=== PATIENT | female | born 1960 | race Caucasian/White ===

== ENCOUNTER 2016-04-08 16:45 | Observation (INO) | payer OTHER ==
[~2016-04-08] VITALS: Ht 170.2 cm; Wt 67.0 kg
[2016-04-08 17:43] LABS: MCH 31.8 PG (29.0-34.0); MCHC 33.5 G/DL (30.0-36.0); PLATELET COUNT 152 K/uL (156-360); RBC DIS.WIDTH-CV 13.8 % (11.8-14.6); RBC DIS.WIDTH-SD 45.7 % (39-53); RED BLOOD COUNT 4.21 M/uL (3.80-5.20); WHITE BLOOD COUNT 4.9 K/uL (4.1-10.2)
[2016-04-08 17:52] LABS: CHLORIDE 108 mEq/L (99-109); POTASSIUM 3.9 mEq/L (3.7-5.4); SODIUM 141 mEq/L (136-147)
[2016-04-08 17:54] LABS: GLUCOSE 86 mg/dL (70-99)
[2016-04-08 17:56] LABS: ANION GAP 9 MEQ/L (2-14)
[2016-04-08 17:58] LABS: GFR ESTIMATE (CALCULATED) 45 mL/min/
[2016-04-08 17:59] LABS: UREA NITROGEN (BUN) 21 mg/dL (9-23)
[2016-04-08 18:04] LABS: TROP-I INTERPRETATION NEGATIVE; TROPONIN-I < 0.01 ng/mL (0.0-0.30)
[2016-04-08] MEDS ORDERED: IMITREX100 MG PO (19:18)
[2016-04-08] MEDS ORDERED: TOPAMAX100 MG PO (19:18)
[2016-04-08] MEDS ORDERED: LO-DOSE ASPIRIN81 M1 PO (19:19)
[2016-04-08] MEDS ORDERED: ZOFRAN4 MG PO (19:19)
[2016-04-08] MEDS ORDERED: PROAIR HFA8.5 GM IH (19:19)
[2016-04-08] MEDS ORDERED: XANAX0.5 MG PO (19:20)
[2016-04-08] MEDS ORDERED: NITROGLYCERIN0.4 MG SL (19:20)
[2016-04-08] MEDS ORDERED: LEXAPRO20 MG PO (19:20)
[2016-04-08] MEDS ORDERED: IMDUR60 MG PO (19:21)
[2016-04-08] MEDS ORDERED: RANEXA1000 MG PO (19:21)
[2016-04-08] MEDS ORDERED: VERAPAMIL HCL180 MG PO (19:21)
[2016-04-08] MEDS ORDERED: ATORVASTATIN CA40 MG PO (19:22)
[2016-04-08] MEDS ORDERED: PRINIVIL10 MG PO (19:22)
[2016-04-08] MEDS ORDERED: LASIX40 MG PO (19:22)
[2016-04-08] MEDS ORDERED: PROVERA,CYCRIN10 MG PO (19:22)
[2016-04-08] MEDS ORDERED: TYLENOL EXTRA500 MG PO (19:23)
[2016-04-08] MEDS ORDERED: TUMS500 MG PO (19:23)
[2016-04-08] MEDS ORDERED: PROTONIX20 MG PO (19:24)
[2016-04-08] MEDS ORDERED: ADVAIR 250/501 DISK IH (19:24)
[2016-04-08] MEDS ORDERED: EPINEPHRINE (19:27)
[2016-04-09] VITALS (8 sets, daily range): BP systolic 97–169; BP diastolic 55–72
[2016-04-09 03:44] LABS: TROP-I INTERPRETATION NEGATIVE; TROPONIN-I < 0.01 ng/mL (0.0-0.30)
[2016-04-09 09:40] LABS: TROP-I INTERPRETATION NEGATIVE; TROPONIN-I < 0.01 ng/mL (0.0-0.30)
[2016-04-09 13:14] LABS: D-DIMER ELISA 0.31 mg/L FEU (< 0.57)
== END 2016-04-09 15:47 | disposition home or self-care (01) ==
LOC: EME 16:45 → 5WEST 23:39 → EDOF 23:39 → 5WEST 04-09 01:36
PROVIDERS: Hospitalist; Nurse Practitioner Adult Health
DX: R07.9 Chest pain, unspecified (principal); I51.81 Takotsubo syndrome; Z95.0 Presence of cardiac pacemaker; I49.5 Sick sinus syndrome; K22.70 Barrett's esophagus without dysplasia; Z87.891 Personal history of nicotine dependence; E78.5 Hyperlipidemia, unspecified; Z88.2 Allergy status to sulfonamides; Z91.030 Bee allergy status
CPT/HCPCS: 71020; 80048; 84484; 85027; 85379; 93005; 94640; 99202; 99281; 99285; G0378; J1650; J3010

== ENCOUNTER 2016-04-14 20:01 | Observation (INO) | payer OTHER ==
[~2016-04-14] VITALS: Ht 170.2 cm; Wt 64.8 kg
[~2016-04-14 20:01] MED LIST: ADVAIR 250/501 DISK IH; ATORVASTATIN CA40 MG PO; EPINEPHRINE; IMDUR60 MG PO; IMITREX100 MG PO; LASIX40 MG PO; LEXAPRO20 MG PO; LO-DOSE ASPIRIN81 M1 PO; NITROGLYCERIN0.4 MG SL; PRINIVIL10 MG PO; PROAIR HFA8.5 GM IH; PROTONIX20 MG PO; PROVERA,CYCRIN10 MG PO; RANEXA1000 MG PO; TOPAMAX100 MG PO; TUMS500 MG PO; TYLENOL EXTRA500 MG PO; VERAPAMIL HCL180 MG PO; XANAX0.5 MG PO; ZOFRAN4 MG PO
[2016-04-14 21:19] LABS: HEMATOCRIT 37.9 % (36.0-46.0); MCH 32.8 PG (29.0-34.0); MCHC 34.6 G/DL (30.0-36.0); MCV 94.8 FL (83-99); MEAN PLAT.VOLUME 10.9 uM^3 (9.5-12.4); PLATELET COUNT 134 K/uL (156-360); RBC DIS.WIDTH-CV 13.3 % (11.8-14.6); WHITE BLOOD COUNT 4.8 K/uL (4.1-10.2)
[2016-04-14 21:27] LABS: CHLORIDE 109 mEq/L (99-109); POTASSIUM 3.4 mEq/L (3.7-5.4); SODIUM 141 mEq/L (136-147)
[2016-04-14 21:29] LABS: GLUCOSE 102 mg/dL (70-99)
[2016-04-14 21:30] LABS: ANION GAP 9 MEQ/L (2-14)
[2016-04-14 21:32] LABS: GFR ESTIMATE (CALCULATED) 36 mL/min/
[2016-04-14 21:33] LABS: UREA NITROGEN (BUN) 24 mg/dL (9-23)
[2016-04-14 21:39] LABS: TROP-I INTERPRETATION NEGATIVE; TROPONIN-I 0.02 ng/mL (0.0-0.30)
[2016-04-14 21:40] LABS: QUANTITATIVE HCG < 4.0 MIU/ML
[2016-04-14 21:45] LABS: D-DIMER ELISA 0.36 mg/L FEU (< 0.57)
[2016-04-14 21:49] LABS: TOTAL BILIRUBIN 0.3 mg/dL (0.0-1.0)
[2016-04-14 21:50] LABS: ALKALINE PHOSPHATASE 72 IU/L (3-129)
[2016-04-14 21:52] LABS: DIRECT BILIRUBIN 0.1 mg/dL (0.0-0.3)
[2016-04-15 00:01] LABS: LIPASE 31 U/L (1.0-51.0)
[2016-04-15 00:29] VITALS: BP 135/64
[2016-04-15 03:49] VITALS: BP 122/74
[2016-04-15 04:37] LABS: CHLORIDE 111 mEq/L (99-109); POTASSIUM 3.7 mEq/L (3.7-5.4); SODIUM 140 mEq/L (136-147)
[2016-04-15 04:38] LABS: GLUCOSE 95 mg/dL (70-99)
[2016-04-15 04:40] LABS: ANION GAP 10 MEQ/L (2-14)
[2016-04-15 04:42] LABS: GFR ESTIMATE (CALCULATED) 50 mL/min/
[2016-04-15 04:43] LABS: UREA NITROGEN (BUN) 23 mg/dL (9-23)
[2016-04-15 04:48] LABS: TROP-I INTERPRETATION NEGATIVE; TROPONIN-I 0.03 ng/mL (0.0-0.30)
[2016-04-15 08:16] VITALS: BP 111/61
[2016-04-15 09:43] LABS: D-DIMER ELISA 0.25 mg/L FEU (< 0.57)
[2016-04-15 10:04] LABS: TROP-I INTERPRETATION NEGATIVE; TROPONIN-I 0.03 ng/mL (0.0-0.30)
[2016-04-15 11:44] VITALS: BP 91/55
[2016-04-15] MEDS ORDERED: IMDUR30 MG PO (14:17)
[2016-04-15] MEDS ORDERED: PANTOPRAZOLE SO40 MG PO (14:17)
== END 2016-04-15 16:28 | disposition home or self-care (01) ==
LOC: EME 20:01 → EDOF 23:27 → 5WEST 23:27
PROVIDERS: Emergency Medicine; Hospitalist; Internal Medicine
DX: R07.9 Chest pain, unspecified (principal); I49.5 Sick sinus syndrome; Z95.0 Presence of cardiac pacemaker; I51.81 Takotsubo syndrome; J44.9 Chronic obstructive pulmonary disease, unspecified; E78.5 Hyperlipidemia, unspecified; F41.9 Anxiety disorder, unspecified; F32.9 Major depressive disorder, single episode, unspecified; N92.1 Excessive and frequent menstruation with irregular cycle; Z79.818 Long term (current) use of other agents affecting estrogen receptors and estrogen levels; Z87.891 Personal history of nicotine dependence; Z82.49 Family history of ischemic heart disease and other diseases of the circulatory system; Z80.9 Family history of malignant neoplasm, unspecified; Z91.030 Bee allergy status; Z88.2 Allergy status to sulfonamides
CPT/HCPCS: 71010; 80048; 80076; 83690; 84484; 84702; 85027; 85379; 93005; 94640 76; 94760; 99202; 99281; 99285; G0378; J1644; J2270; J2405

== ENCOUNTER 2016-07-05 11:04 | Emergency (ER) | payer OTHER ==
[~2016-07-05] VITALS: Ht 170.2 cm; Wt 66.5 kg
[~2016-07-05 11:04] MED LIST changes: +IMDUR30 MG PO; +PANTOPRAZOLE SO40 MG PO
[2016-07-05] MEDS ORDERED: TRAMADOL HCL50 MG PO (12:49)
[2016-07-05] MEDS ORDERED: FLEXERIL10 MG PO (12:49)
[2016-07-05] MEDS ORDERED: LIDODERM 5% P1 PATCH TD (12:49)
[2016-07-05 12:58] VITALS: BP 140/66
== END 2016-07-05 12:59 | disposition home or self-care (01) ==
LOC: EME 11:04
DX: S46.811A Strain of other muscles, fascia and tendons at shoulder and upper arm level, right arm, initial encounter (principal); M54.12 Radiculopathy, cervical region; M62.830 Muscle spasm of back; X50.9XXA Other and unspecified overexertion or strenuous movements or postures, initial encounter; Y93.89 Activity, other specified; Y92.009 Unspecified place in unspecified non-institutional (private) residence as the place of occurrence of the external cause; Z87.891 Personal history of nicotine dependence
CPT/HCPCS: 99281; 99284